=== PATIENT | male | born 1995 | race Caucasian/White ===

== ENCOUNTER 2018-02-07 20:31 | Emergency (ER) | payer OTHER, SELFPAY ==
--- NOTE | 2018-02-07 21:19 | RAD ---
RADIOGRAPH RIGHT WRIST 3 VIEWS: DATE: 02/07/18 TIME: 8:54 p.m. HISTORY: 22-year-old male with increasing posttraumatic right wrist pain due to injury yesterday. FINDINGS: No fracture is identified. However, if there is snuffbox tenderness that suggests an occult scaphoid fracture, then the general recommendation is immobilization and followup imaging in 5 to 10 days. Ali gnment is normal. The joint spaces are maintained without erosions or osteophytes. There is a well co rticated approximately 0.4 x 0.4 cm ossific density apparently attached to the distal tip of the ulna r styloid process, and projecting distally. IMPRESSION: 1. No acute fracture identified. 2. Accessory ossicle versus old, displaced fracture with union, attached to distal tip of ulnar styloid process. POS: [id number]
== END 2018-02-07 22:44 | disposition home or self-care (01) ==
LOC: ERS 20:31
DX: S63.501A Unspecified sprain of right wrist, initial encounter (principal); X50.1XXA Overexertion from prolonged static or awkward postures, initial encounter